=== PATIENT | female | born 1960 | race Caucasian/White ===

== ENCOUNTER 2017-09-16 09:21 | Emergency (ER) | payer OTHER ==
[~2017-09-16] VITALS: Ht 157.5 cm; Wt 62.6 kg
[~2017-09-16 09:21] MED LIST: AZIT250T6 PO; PRED50TA PO
[2017-09-16 09:31] VITALS: BP 143/63
[2017-09-16] MEDS ORDERED: TRIA80OI TP (10:03)
[2017-09-16] MEDS ORDERED: KETO15CR2 TP (10:04)
--- NOTE | 2017-09-16 10:19 | PHYS DOC ---
Past History Past Medical History: COPD Past Surgical History: No Surgical History Smoking: Cigarettes Alcohol Use: Occasionally Drug Use: None Adult General Chief Complaint Chief Complaint: SKIN RASH/ABSCESS [facility] HPI 57-year-old female presents with rash from just below her breast up into her neck. The rash is erythematous and scaly. She states that she has had this rash for about a month. She has tried hydrocortisone cream at one point the rash went away for about a week but then it came back worse. It is pruritic. She has no history of rashes in the past. No history of eczema. No history of yeast infections. She cannot think of any unusual or new exposures to chemicals or detergents. No rash on her lower extremities or back. She denies fever or chills. She has no other symptoms of illness. Review of Systems Review of Systems Constitutional: Denies fever or chills [] Eyes: Denies change in visual acuity, redness, or eye pain [] HENT: Denies nasal congestion or sore throat [] Respiratory: Denies cough or shortness of breath [] Cardiovascular: No additional information not addressed in HPI [] GI: Denies abdominal pain, nausea, vomiting, bloody stools or diarrhea [] : Denies dysuria or hematuria [] Musculoskeletal: Denies back pain or joint pain [] Integument: Rash on chest and neck [] Neurologic: Denies headache, focal weakness or sensory changes [] Endocrine: Denies polyuria or polydipsia [] All other systems were reviewed and found to be within normal limits, except as documented in this note. Allergies Allergies Allergies Coded Allergies Type Severity Reaction Last Updated Verified No Known Allergies Allergy Unknown 03/20/16 Yes Physical Exam Physical Exam Constitutional: Well developed, well nourished, no acute distress, non-toxic appearance. [] HENT: Normocephalic, atraumatic, bilateral external ears normal, oropharynx moist, no oral exudates, nose normal. [] Eyes: PERRLA, EOMI, conjunctiva normal, no discharge. [] Neck: Normal range of motion, no tenderness, supple, no stridor. [] Cardiovascular:Heart rate regular rhythm, no murmur [] Lungs & Thorax: Bilateral breath sounds clear to auscultation [] Abdomen: Bowel sounds normal, soft, no tenderness, no masses, no pulsatile masses. [] Skin: Erythematous macules with areas of confluence. Moderate scaling of the rash of the neck.[] Back: No tenderness, no CVA tenderness. [] Extremities: No tenderness, no cyanosis, no clubbing, ROM intact, no edema. [] Neurologic: Alert and oriented X 3, normal motor function, normal sensory function, no focal deficits noted. [] Psychologic: Affect normal, judgement normal, mood normal. [] Current Patient Data Vital Signs Vital Signs Date Time Temp Pulse Resp B/P (MAP) Pulse Ox O2 Delivery O2 Flow Rate FiO2 09/16/17 09:31 98.4 63 18 98 Room Air EKG EKG [] Radiology/Procedures Radiology/Procedures [] Course & Med Decision Making Course & Med Decision Making Pertinent Labs and Imaging studies reviewed. (See chart for details) The patient's rash has the appearance of atopic dermatitis and some areas as above the breast and neck. The area below her breasts has the look of a fungal infection. It is possible that she has both of these, I most suspect atopic dermatitis. I will give her a prescription for triamcinolone 0.5 cream twice a day. Will also provide her a prescription for ketoconazole cream in case this is a fungal infection. I provided directions for her to start with the steroid and the indications to watch for if it gets worse and switch medications. She has any questions or call us or follow up with her PCP. [] Alis Disclaimer Alis Disclaimer This electronic medical record was generated, in whole or in part, using a voice recognition dictation system. Departure Departure: Impression: Primary Impression: Atopic dermatitis Disposition: 01 HOME, SELF-CARE Condition: STABLE Patient Instructions: Eczema, Yeast Infection of the Skin, [id number] Scripts Ketoconazole (KETOCONAZOLE) 15 Gm Cream..g. 1 KASH TP BID, #60 GM 1 Refill Prov: LEATHA ERWIN DO 09/16/17 Triamcinolone Acetonide (TRIAMCINOLONE ACETONIDE) 80 Gm Oint...g. 1 KASH TP BID, #30 GM 1 Refill Prov: LEATHA ERWIN DO 09/16/17 LEATHA ERWIN DO September 16, 2017 10:19
== END 2017-09-16 10:15 | disposition home or self-care (01) ==
LOC: ER 09:21
DX: L20.9 Atopic dermatitis, unspecified (principal); J44.9 Chronic obstructive pulmonary disease, unspecified; F17.210 Nicotine dependence, cigarettes, uncomplicated
CPT/HCPCS: 99283

== ENCOUNTER → 2017-12-11 23:53 | Emergency (ER) | payer OTHER ==
[~2017-12-11] VITALS: Ht 157.5 cm; Wt 62.6 kg
[2017-12-11 23:53] VITALS: BP 143/63
[~2017-12-11 23:53] MED LIST changes: +KETO15CR2 TP; +MVI, ADULT NO.4 WITH VIT K 10 ML, FOLIC ACID SYRINGE for ER 1 MG, THIAMINE 100 MG in IV... IV ONE; +TRIA80OI TP
--- NOTE | 2017-12-12 00:03 | ED.ADGEN ---
Past History Past Medical History: Alcoholism, COPD Past Surgical History: No Surgical History Smoking: Cigarettes Alcohol Use: Occasionally Drug Use: None Adult General Chief Complaint Chief Complaint ".. I don't want to be fucking here... they made me come...".." I am leaving soon as I get a chance..." " Can't a person get drunk anymore..." HPI HPI Patient is a 57 year old female [employer] at [employer], who presents with hx of alcohol abuse. Pt. a Police Dept. referral to Paramedics to take her to [facility]. Pt. was found passed out on side of road by her home. Pt. reportedly unable to walk due to alcohol intoxication. Pt. however ambulatory without problems on arrival to ED. Pt. denies injury. Know to Police Dept. for frequent public intoxication. Usually pt is escorted or told to go inside of her home, however tonight referral to [place] for her intoxicated state. Pt. insistent she was not going to be admitted. Pt. finally agreed to receive IV and further evaluation. ( Note Pt. ran out the back door when she went to the bathroom. ) Review of Systems Review of Systems Pt,. states she was only drunk- no complaints other than being made to come to the hospital. Constitutional: Denies fever or chills [] Eyes: Denies change in visual acuity, redness, or eye pain [] HENT: Denies nasal congestion or sore throat [] Respiratory: Denies cough or shortness of breath [] Cardiovascular: No additional information not addressed in HPI [] GI: Denies abdominal pain, nausea, vomiting, bloody stools or diarrhea [] : Denies dysuria or hematuria [] Musculoskeletal: Denies back pain or joint pain [] Integument: Denies rash or skin lesions [] Neurologic: Denies headache, focal weakness or sensory changes [] Endocrine: Denies polyuria or polydipsia [] All other systems were reviewed and found to be within normal limits, except as documented in this note. Family History Family History Non-contributory Current Medications Current Medications Current Medications Medications (Trade) Dose Ordered Sig/Jacinto Start Time Stop Time Status Last Admin Dose Admin Multivitamins/ Minerals 10 ml/ Folic Acid 1 mg/ Thiamine HCl 100 mg/Sodium Chloride 1,011.1 ml @ 1,000 mls/ hr 1X ONCE 12/12/17 00:45 12/12/17 01:45 DC Allergies Allergies Allergies Coded Allergies Type Severity Reaction Last Updated Verified No Known Allergies Allergy Unknown 03/20/16 Yes Physical Exam Physical Exam Constitutional: no acute distress, mildly intoxicated in appearance. [] HENT: Normocephalic, atraumatic, bilateral external ears normal, oropharynx moist, no oral exudates, nose normal. [] Eyes: PERRLA, EOMI, conjunctiva mild injection, no discharge. [] Neck: Normal range of motion, no tenderness, supple, no stridor. [] Cardiovascular:Heart rate regular rhythm, no murmur [] Lungs & Thorax: Bilateral breath sounds equal at apex on auscultation [] Abdomen: Bowel sounds normal, soft, no tenderness, no masses, no pulsatile masses. [] Skin: Warm, dry, no erythema, no rash. [] Back: No tenderness, no CVA tenderness. [] Extremities: No tenderness, no cyanosis, no clubbing, ROM intact, no edema. [] Neurologic: Alert and oriented X 3, normal motor function, normal sensory function, no focal deficits noted. [] Slightly wide gait and discoordinated. Psychologic: Affect normal, judgement normal, mood normal. [] Current Patient Data Vital Signs Vital Signs Date Time Temp Pulse Resp B/P (MAP) Pulse Ox O2 Delivery O2 Flow Rate FiO2 12/11/17 23:53 98.4 84 18 98 EKG EKG [] Radiology/Procedures Radiology/Procedures [] Course & Med Decision Making Course & Med Decision Making Pertinent Labs and Imaging studies reviewed. (See chart for details) Note pt. reportedly ran out back door ([place]) when she went to the bathroom. [] Final Impression Final Impression 1. Alcohol Intoxication[] Dragon Disclaimer Dragon Disclaimer This electronic medical record was generated, in whole or in part, using a voice recognition dictation system. HAMZAH COSTA MD Dec 12, 2017 00:02
== END | disposition left against medical advice (07) ==
LOC: ER 23:53
DX: F10.229 Alcohol dependence with intoxication, unspecified (principal); J44.9 Chronic obstructive pulmonary disease, unspecified; F17.210 Nicotine dependence, cigarettes, uncomplicated; Y90.9 Presence of alcohol in blood, level not specified
CPT/HCPCS: 99283

== ENCOUNTER 2018-02-05 02:24 | Emergency (ER) | payer OTHER ==
[~2018-02-05] VITALS: Ht 154.9 cm; Wt 60.6 kg
[~2018-02-05 02:24] MED LIST changes: -MVI, ADULT NO.4 WITH VIT K 10 ML, FOLIC ACID SYRINGE for ER 1 MG, THIAMINE 100 MG in IV... IV ONE
--- NOTE | 2018-02-05 02:40 | ED.ADGEN ---
Past History Past Medical History: Alcoholism, COPD Past Surgical History: No Surgical History Smoking: Cigarettes Alcohol Use: Heavy Drug Use: None Adult General Chief Complaint Chief Complaint "...I was drinking.. I was drinking heavy.... I drink heavy every day... but usually drink.. at home...so this does not happen.... next thing .. I know..these guys ... picked me up and brought me here..." HPI HPI Patient is a 57 year old female who presents with hx of heavy alcohol use and police referral. Pt. reportedly initially found by paper delivery boy asleep by the road. PD responded and call ambulance. Pt. has no current complaints. Pt. estimate she drank at least a case amount of [facility] [place] [facility] Pt. last seen on 12/11/17 for similar presentation of alcohol abuse and intoxication. Review of Systems Review of Systems Constitutional: Denies fever or chills [] Eyes: Denies change in visual acuity, redness, or eye pain [] HENT: Denies nasal congestion or sore throat [] Respiratory: Denies cough or shortness of breath [] Cardiovascular: No additional information not addressed in HPI [] GI: Denies abdominal pain, nausea, vomiting, bloody stools or diarrhea [] : Denies dysuria or hematuria [] Musculoskeletal: Denies back pain or joint pain [] Integument: Denies rash or skin lesions [] Neurologic: Denies headache, focal weakness or sensory changes [] Endocrine: Denies polyuria or polydipsia [] All other systems were reviewed and found to be within normal limits, except as documented in this note. Family History Family History Non-contributory Current Medications Current Medications Current Medications Medications (Trade) Dose Ordered Sig/Jacinto Start Time Stop Time Status Last Admin Dose Admin Lactated Ringer's 1,000 ml @ 1,000 mls/hr 1X ONCE 02/05/18 03:00 02/05/18 03:37 DC 02/05/18 02:49 1,000 MLS/HR See nursing for home meds. Allergies Allergies Allergies Coded Allergies Type Severity Reaction Last Updated Verified No Known Allergies Allergy Unknown 03/20/16 Yes Physical Exam Physical Exam Constitutional: Pt. has no acute distress,intoxicated appearance. [] HENT: Normocephalic, atraumatic, bilateral external ears normal, oropharynx moist, no oral exudates, nose normal. []Edentulous Eyes: PERRLA, EOMI, conjunctiva injected, no discharge. [] Neck: Normal range of motion, no tenderness, supple, no stridor. [] Cardiovascular:Heart rate regular rhythm, no murmur , PMI to Lt. Lungs & Thorax: Bilateral breath sounds equal at apexes with scattered wheezes on auscultation [] Abdomen: Bowel sounds normal, soft, no tenderness, no masses, no pulsatile masses. [] Skin: Warm, dry, no erythema, no rash. [] Back: No tenderness, no CVA tenderness. [] Extremities: No tenderness, no cyanosis, no clubbing, ROM intact, no edema. [] Neurologic: Alert and oriented X 3,slurred speech, moves all ext .on request. , , DTR + patella and brachial. mild discoordinated, wide gait. Clinical Care Manager equal. Psychologic: Affect polite, , judgement normal, mood normal. [] Current Patient Data Vital Signs Vital Signs Date Time Temp Pulse Resp B/P (MAP) Pulse Ox O2 Delivery O2 Flow Rate FiO2 02/05/18 03:05 78 16 127/82 (97) 97 Room Air 02/05/18 02:32 97.8 EKG EKG [] Radiology/Procedures Radiology/Procedures [] Course & Med Decision Making Course & Med Decision Making Pertinent Labs and Imaging studies reviewed. (See chart for details). Patient encouraged to reduce her consumption of alcohol. Patient take a daily multivitamin. Patient consider alcohol treatment programs. Patient return if any concerns. Patient follow-up primary care. Pt. encourage to stop smoking and using alcohol to excess. Pt. ambulatory without problems and taking a cab home. [] Final Impression Final Impression 1. Alcohol intoxication[] 2. Tobacco Use 3. Hx of COPD 4. Hx. of Chronic Alcohol use to point of passing out and or falling asleep. Dragon Disclaimer Dragon Disclaimer This electronic medical record was generated, in whole or in part, using a voice recognition dictation system. HAMZAH COSTA MD Feb 05, 2018 02:40
[2018-02-05] MEDS ORDERED: IV RINGERS SOLUTION,LACTATED 1,000 ML IV ONE (03:00)
[2018-02-05 03:05] VITALS: BP 127/82
== END 2018-02-05 03:25 | disposition home or self-care (01) ==
LOC: ER 02:24
DX: F10.229 Alcohol dependence with intoxication, unspecified (principal); J44.9 Chronic obstructive pulmonary disease, unspecified; F17.210 Nicotine dependence, cigarettes, uncomplicated; Y90.9 Presence of alcohol in blood, level not specified
CPT/HCPCS: 99284; J7120

== ENCOUNTER 2018-03-02 23:58 | Emergency (ER) | payer OTHER ==
[~2018-03-02] VITALS: Ht 160 cm; Wt 61.2 kg
--- NOTE | 2018-03-03 00:13 | ED.ADGEN ---
Past History Past Medical History: Alcoholism, COPD Past Surgical History: No Surgical History Smoking: Cigarettes Alcohol Use: Heavy Drug Use: None Adult General Chief Complaint Chief Complaint ".. I drank too much...".. " I was watching world series..".. " You were here the last time I came in..." HPI HPI Patient is a 57 year old female who presents with above hx and complaints. [facility] Pt. found by bystander after she has consumed 2 Liters of vodka today. Pt. know to ED staff and paramedics for periodic alcohol abuse excesses. Pt. denies trauma. Denies Ill contacts or travel. Pt. currently unable to stand due to her intoxication and unstable gait. Review of Systems Review of Systems Pt. states she has no complaints Constitutional: Denies fever or chills [] Eyes: Denies change in visual acuity, redness, or eye pain [] HENT: Denies nasal congestion or sore throat [] Respiratory: Denies cough or shortness of breath [] Cardiovascular: No additional information not addressed in HPI [] GI: Denies abdominal pain, nausea, vomiting, bloody stools or diarrhea [] : Denies dysuria or hematuria [] Musculoskeletal: Denies back pain or joint pain [] Integument: Denies rash or skin lesions [] Neurologic: Denies headache, focal weakness or sensory changes [] Endocrine: Denies polyuria or polydipsia [] All other systems were reviewed and found to be within normal limits, except as documented in this note. Family History Family History Non-contributory Current Medications Current Medications Current Medications Medications (Trade) Dose Ordered Sig/Jacinto Start Time Stop Time Status Last Admin Dose Admin Folic Acid (FOLIC ACID SYRINGE for ER) 5 mg STK-MED ONCE 03/03/18 00:30 03/03/18 00:32 DC Multivitamins/ Minerals (Infuvite Adult) 10 ml STK-MED ONCE 03/03/18 00:30 03/03/18 00:32 DC Multivitamins/ Minerals 10 ml/ Folic Acid 1 mg/ Thiamine HCl 100 mg/Lactated Ringer's 1,011.2 ml @ 1,000 mls/ hr 1X ONCE 03/03/18 00:30 03/03/18 01:30 DC 03/03/18 00:36 1,000 MLS/HR Ondansetron HCl (Zofran) 8 mg 1X ONCE 03/03/18 06:15 03/03/18 06:15 DC Thiamine HCl (Thiamine Vial) 200 mg STK-MED ONCE 03/03/18 00:29 03/03/18 00:30 DC Allergies Allergies Allergies Coded Allergies Type Severity Reaction Last Updated Verified No Known Allergies Allergy Unknown 03/20/16 Yes Physical Exam Physical Exam Constitutional: , no acute distress, intoxicated in appearance. [] HENT: Normocephalic, atraumatic, bilateral external ears normal, oropharynx moist, no oral exudates, nose normal. []Edentulous Eyes: PERRLA, EOMI, conjunctiva injected,, no discharge. [] Neck: Normal range of motion, no tenderness, supple, no stridor. [] Cardiovascular:Heart rate regular rhythm, no murmur [] Lungs & Thorax: Bilateral breath sounds equal at apex with scattered wheezes on auscultation [] Abdomen: Bowel sounds normal, soft, no tenderness, no masses, no pulsatile masses. Midline scar Skin: Warm, dry, no erythema, no rash. [] Back: No tenderness, no CVA tenderness. [] Extremities: No tenderness, no cyanosis, no clubbing, ROM intact, no edema. [] Neurologic: Alert and oriented X 3, moves all extremities on request, decreased plantar sensory function, no focal deficits noted. [Discoordinated Psychologic: Affect sedated, judgement appears lack insight to her alcohol abuse , mood normal. [] Current Patient Data Vital Signs Vital Signs Date Time Temp Pulse Resp B/P (MAP) Pulse Ox O2 Delivery O2 Flow Rate FiO2 03/03/18 05:45 82 18 120/72 (88) 99 Room Air 03/03/18 00:03 98.5 Lab Results Laboratory Tests Test 03/03/18 00:10 03/03/18 00:16 White Blood Count 4.4 x10^3/uL (4.0-11.0) Red Blood Count 4.02 x10^6/uL (3.50-5.40) Hemoglobin 14.4 g/dL (12.0-15.5) Hematocrit 40.6 % (36.0-47.0) Mean Corpuscular Volume 101 fL (79-100) H Mean Corpuscular Hemoglobin 36 pg (25-35) H Mean Corpuscular Hemoglobin Concent 35 g/dL (31-37) Red Cell Distribution Width 13.4 % (11.5-14.5) Platelet Count 234 x10^3/uL (140-400) Neutrophils (%) (Auto) 43 % (31-73) Lymphocytes (%) (Auto) 40 % (24-48) Monocytes (%) (Auto) 12 % (0-9) H Eosinophils (%) (Auto) 4 % (0-3) H Basophils (%) (Auto) 1 % (0-3) Neutrophils # (Auto) 1.9 x10^3uL (1.8-7.7) Lymphocytes # (Auto) 1.8 x10^3/uL (1.0-4.8) Monocytes # (Auto) 0.5 x10^3/uL (0.0-1.1) Eosinophils # (Auto) 0.2 x10^3/uL (0.0-0.7) Basophils # (Auto) 0.0 x10^3/uL (0.0-0.2) Prothrombin Time 9.6 SEC (9.4-11.4) Prothrombin Time INR 1.0 (0.9-1.1) PTT 25 SEC (23-33) Sodium Level 141 mmol/L (136-145) Potassium Level 3.7 mmol/L (3.5-5.1) Chloride Level 106 mmol/L (98-107) Carbon Dioxide Level 30 mmol/L (21-32) Anion Gap 5 (6-14) L Blood Urea Nitrogen 10 mg/dL (7-20) Creatinine 0.5 mg/dL (0.6-1.0) L Estimated GFR (Cockcroft-Gault) 128.1 Glucose Level 92 mg/dL (70-99) Calcium Level 8.0 mg/dL (8.5-10.1) L Magnesium Level 2.4 mg/dL (1.8-2.4) Total Bilirubin 0.2 mg/dL (0.2-1.0) Direct Bilirubin 0.1 mg/dL (0.0-0.2) Aspartate Amino Transferase (AST) 34 U/L (15-37) Alanine Aminotransferase (ALT) 120 U/L (14-59) H Alkaline Phosphatase 136 U/L (46-116) H Total Protein 6.8 g/dL (6.4-8.2) Albumin 3.5 g/dL (3.4-5.0) Ethyl Alcohol Level 423 mg/dL (0-10) *H Urine Collection Type U cath Urine Color Straw Urine Clarity Clear Urine pH 5.0 Urine Specific [place] <=1.005 Urine Protein Neg (NEG-TRACE) Urine Glucose (UA) Neg mg/dL (NEG) Urine Ketones (Stick) Neg mg/dL (NEG) Urine Blood Neg (NEG) Urine Nitrite Neg (NEG) Urine Bilirubin Neg (NEG) Urine Urobilinogen Dipstick 0.2 mg/dL (0.2 mg/dL) Urine Leukocyte Esterase Neg (NEG) Urine RBC Rare /HPF (0-2) Urine WBC Rare /HPF (0-4) Urine Bacteria 0 /HPF (0-FEW) Urine Opiates Screen Neg (NEG) Urine Methadone Screen Neg (NEG) Urine Barbiturates Neg (NEG) Urine Phencyclidine Screen Neg (NEG) Urine Amphetamine/Methamphetamine Neg (NEG) Urine Benzodiazepines Screen Neg (NEG) Urine Cocaine Screen Neg (NEG) Urine Cannabinoids Screen Neg (NEG) Urine Ethyl Alcohol Pos (NEG) EKG EKG My interpretation EKG shows a sinus rhythm at 78 bpm. No acute morphology[] Radiology/Procedures Radiology/Procedures [] Course & Med Decision Making Course & Med Decision Making Pertinent Labs and Imaging studies reviewed. (See chart for details) Encourage pt. to reduce her alcohol intake. Pt. encourage to consider alcohol abuse program. Take a daily MV with Milagros elmore. Pt. to follow up with primary. Return if any concerns. [] Final Impression Final Impression 1. Alcohol Abuse.-423 2. Macrocytic 3. Elevated AST/ ALT- 120/136 Dragon Disclaimer Dragon Disclaimer This electronic medical record was generated, in whole or in part, using a voice recognition dictation system. HAMZAH COSTA MD Mar 03, 2018 00:13
[2018-03-03] MEDS ORDERED: MVI, ADULT NO.4 WITH VIT K 10 ML, FOLIC ACID SYRINGE for ER 1 MG, THIAMINE INJ 100 MG i... IV ONE ×8 (00:15→00:30)
[2018-03-03 00:27] LABS: BASO % 1 % (0-3); EOS # 0.2 x10^3/uL (0.0-0.7); EOS % 4 % (0-3); HEMATOCRIT 40.6 % (36.0-47.0); HEMOGLOBIN 14.4 g/dL (12.0-15.5); LYMPH # 1.8 x10^3/uL (1.0-4.8); LYMPH % 40 % (24-48); MEAN CORPUSCULAR HEMOGLOBIN 36 pg (25-35); MEAN CORPUSCULAR HGB CONC 35 g/dL (31-37); MEAN CORPUSCULAR VOLUME 101 fL (79-100); MONO # 0.5 x10^3/uL (0.0-1.1); MONO % 12 % (0-9); NEUT # 1.9 x10^3uL (1.8-7.7); NEUT % 43 % (31-73); PLATELET COUNT 234 x10^3/uL (140-400); RED BLOOD COUNT 4.02 x10^6/uL (3.50-5.40); RED CELL DISTRIBUTION WIDTH 13.4 % (11.5-14.5); WHITE BLOOD COUNT 4.4 x10^3/uL (4.0-11.0)
[2018-03-03] MEDS ORDERED: THIAMINE 200 MG/2 ML VIAL. IV ONE (00:29)
[2018-03-03] MEDS ORDERED: FOLIC ACID 5 MG/ML SYRINGE for ER IV ONE (00:30)
[2018-03-03] MEDS ORDERED: MVI, ADULT NO.4 WITH VIT K 10 ML VIAL IV ONE (00:30)
[2018-03-03 00:39] LABS: ALBUMIN 3.5 g/dL (3.4-5.0); CREATININE 0.5 mg/dL (0.6-1.0); DIRECT BILIRUBIN 0.1 mg/dL (0.0-0.2); GFR 128.1; MAGNESIUM 2.4 mg/dL (1.8-2.4); POTASSIUM 3.7 mmol/L (3.5-5.1); TOTAL BILIRUBIN 0.2 mg/dL (0.2-1.0); TOTAL PROTEIN 6.8 g/dL (6.4-8.2)
[2018-03-03 00:53] LABS: BILIRUBIN,URINE NEG (NEG); CLARITY,URINE CLEAR; COLOR,URINE STRAW; GLUCOSE,URINE NEG (NEG); NITRITE,URINE NEG (NEG); RBC,URINE RARE /HPF (0-2); UROBILINOGEN,URINE 0.2 mg/dL (0.2 mg/dL); WBC,URINE RARE /HPF (0-4)
[2018-03-03 00:54] LABS: BACTERIA,URINE 0 /HPF (0-FEW)
[2018-03-03 00:57] LABS: AMPHETAMINE/METHAMPHETAMINE NEG (NEG); BARBITURATES NEG (NEG); BENZODIAZEPINES NEG (NEG); CANNABINOIDS NEG (NEG); COCAINE NEG (NEG); METHADONE NEG (NEG); OPIATES NEG (NEG); PHENCYCLIDINE NEG (NEG)
--- NOTE | 2018-03-03 01:24 | EKG ---
[address] [address] Test Date: 2018-03-03 Test Time: 00:21:04 Pat Name: REYES ANDRE Department: Room: Gender: F Dice Table Person: : 1960 Requested By: HAMZAH COSTA Order Number: [id number] Reading MD: Rylan Rinaldi MD Measurements Intervals Herman Rate: 78 P: 40 AR: 190 QRS: 46 QRSD: 76 T: 41 QT: 378 QTc: 434 Interpretive Statements SINUS RHYTHM Electronically Signed On 03-03-2018 11:50:39 CDT by Rylan Rinaldi MD
[2018-03-03 05:45] VITALS: BP 120/72
[2018-03-03] MEDS ORDERED: ONDANSETRON PF 4 MG/2 ML VIAL. IV ONE (06:15)
== END 2018-03-03 05:58 | disposition home or self-care (01) ==
LOC: ER 23:58
DX: F10.20 Alcohol dependence, uncomplicated (principal); D53.9 Nutritional anemia, unspecified; R74.8 Abnormal levels of other serum enzymes; J44.9 Chronic obstructive pulmonary disease, unspecified; F17.210 Nicotine dependence, cigarettes, uncomplicated; Y90.8 Blood alcohol level of 240 mg/100 ml or more
CPT/HCPCS: 36415; 80048; 80076; 80307; 81001; 83735; 85025; 85610; 85730; 93005; 96365; 99285; G0480; J7120; G0479

== ENCOUNTER 2019-02-16 11:49 | Emergency (ER) | payer SELFPAY ==
[~2019-02-16] VITALS: Ht 154.9 cm; Wt 55.3 kg
[2019-02-16] MEDS ORDERED: KETOROLAC 15 MG/ML VIAL. IM ONE (13:00)
[2019-02-16] MEDS ORDERED: ORPHENADRINE CITRATE 60 MG/2 ML VIAL. IM ONE (13:00)
[2019-02-16] MEDS ORDERED: ORPH-16 PO (13:15)
--- NOTE | 2019-02-16 13:15 | PHYS DOC ---
Past History Past Medical History: Alcoholism Past Surgical History: No Surgical History Smoking: Cigarettes Alcohol Use: Heavy Additional Alcohol Information: " I drink about a 6 pack about 3 or 4 times a week" Drug Use: None Adult General Chief Complaint Chief Complaint: LOWER EXT PAIN HPI HPI 58-year-old female presents with report of left-sided thigh pain after falling down the stairs 3 days ago. Patient reports she had slipped at that time due to the wooden stairs. Reports wasn't able to catch herself and fell backwards. Patient reports was able to ambulate afterwards however pain has significant only increased. Denies use of blood thinners. Denies head trauma. Denies neck pain. Denies loss of consciousness. Denies numbness or tingling. Review of Systems Review of Systems Constitutional: Denies fever or chills Eyes: Denies redness or eye pain HENT: Denies nasal congestion or sore throat Respiratory: Denies cough or shortness of breath Cardiovascular: Denies chest pain or palpitations GI: Denies abdominal pain, nausea, or vomiting : Denies dysuria or hematuria Musculoskeletal: Reports left thigh pain Integument: Reports bruising and swelling Neurologic: Denies headache, focal weakness or sensory changes Complete systems were reviewed and found to be within normal limits, except as documented in this note. Current Medications Current Medications Current Medications Medications (Trade) Dose Ordered Sig/Jacinto Start Time Stop Time Status Last Admin Dose Admin Ketorolac Tromethamine (Toradol 15mg Vial) 15 mg 1X ONCE 02/16/19 13:00 02/16/19 13:01 DC 02/16/19 12:59 15 MG Orphenadrine Citrate (Norflex) 60 mg 1X ONCE 02/16/19 13:00 02/16/19 13:01 DC 02/16/19 12:59 60 MG Allergies Allergies Allergies Coded Allergies Type Severity Reaction Last Updated Verified No Known Allergies Allergy Unknown 03/20/16 Yes Physical Exam Physical Exam Constitutional: Well developed, well nourished, no acute distress, non-toxic appearance HENT: Normocephalic, atraumatic, oropharynx moist Eyes: PERRL, EOMI, conjunctiva normal, no discharge Neck: Normal range of motion, no midline tenderness, supple Cardiovascular: Heart rate normal, regular rhythm Lungs & Thorax: Bilateral breath sounds clear to auscultation, no wheezing Abdomen: Soft, no tenderness; pelvis stable and nontender Skin: Warm, dry, no erythema, left posterior thigh ecchymosis noted Back: No tenderness, no CVA tenderness Extremities: Left mid femur tenderness on palpation, ROM intact, no edema, no deformity Neurologic: Alert and oriented X 3, no focal deficits noted Psychologic: Affect normal, judgement normal Current Patient Data Vital Signs Vital Signs Date Time Temp Pulse Resp B/P (MAP) Pulse Ox O2 Delivery O2 Flow Rate FiO2 02/16/19 11:55 98.1 83 16 97 Room Air EKG EKG [] Radiology/Procedures Radiology/Procedures PROCEDURE: HIP LEFT 2V WITH PELVIS Examination: 2 views of the left hip with frontal view the pelvis and 2 views of the left femur HISTORY: History of pain status post fall COMPARISON: None available. FINDINGS: The femoral head is within the acetabulum. Moderate joint space loss identified in the left hip joint likely degenerative changes. There is no acute fracture or dislocation identified. Impression: No acute osseous findings. Electronically signed by: Michael Jane MD (02/16/2019 1:17 PM) [id number] PROCEDURE: LEFT FEMUR XRAY Examination: 2 views of the left hip with frontal view the pelvis and 2 views of the left femur HISTORY: History of pain status post fall COMPARISON: None available. FINDINGS: The femoral head is within the acetabulum. Moderate joint space loss identified in the left hip joint likely degenerative changes. There is no acute fracture or dislocation identified. Impression: No acute osseous findings. Electronically signed by: Michael Jane MD (02/16/2019 1:17 PM) [id number] Course & Med Decision Making Course & Med Decision Making Pertinent Imaging studies reviewed. (See chart for details) Patient presents with report of mechanical slip and fall 2 days ago now with left thigh pain. No deformity appreciated. Symptomatic treatment provided. X-ray obtained without acute process. Patient stable for discharge with outpatient follow-up with PCP/orthopedics. Orthopedic referral provided. Discussed findings and plan with patient, who acknowledges understanding and agreement. Dragon Disclaimer Dragon Disclaimer This electronic medical record was generated, in whole or in part, using a voice recognition dictation system. Departure Departure: Impression: Primary Impression: Contusion of leg, left Additional Impression: Strain of hip Disposition: 01 HOME, SELF-CARE Condition: STABLE Referrals: PCP,NO (PCP) Patient Instructions: Contusion, [id number], Fall Prevention and Home Safety, [id number], Muscle Strain, [id number] Additional Instructions: ICE area of discomfort 20 min on then leave off for 20 min. Use over the counter Tylenol and Ibuprofen for pain or discomfort. Scripts Orphenadrine Citrate (ORPHENADRINE CITRATE) 100 Mg Tablet.er 1 TAB PO BID PRN for MUSCLE PAIN, #14 TAB 0 Refills Prov: BALDEV FRANCO DO 02/16/19 Problem Qualifiers Primary Impression: Contusion of leg, left Encounter type: initial encounter Qualified Codes: S80.12XA - Contusion of left lower leg, initial encounter Additional Impression: Strain of hip Encounter type: initial encounter Laterality: left Qualified Codes: S76.012A - Strain of muscle, fascia and tendon of left hip, initial encounter BALDEV FRANCO DO Feb 16, 2019 13:15
--- NOTE | 2019-02-16 13:20 | RAD ---
Examination: 2 views of the left hip with frontal view the pelvis and 2 views of the left femur HISTORY: History of pain status post fall COMPARISON: None available. FINDINGS: The femoral head is within the acetabulum. Moderate joint space loss identified in the left hip joint likely degenerative changes. There is no acute fracture or dislocation identified. Impression: No acute osseous findings. Electronically signed by: Michael Jane MD (02/16/2019 1:17 PM) [id number]
[2019-02-16 13:24] VITALS: BP 141/68
== END 2019-02-16 13:20 | disposition home or self-care (01) ==
LOC: ER 11:49
DX: S76.012A Strain of muscle, fascia and tendon of left hip, initial encounter (principal); S80.12XA Contusion of left lower leg, initial encounter; F17.210 Nicotine dependence, cigarettes, uncomplicated; F10.20 Alcohol dependence, uncomplicated; Y90.9 Presence of alcohol in blood, level not specified; W10.8XXA Fall (on) (from) other stairs and steps, initial encounter; Y93.89 Activity, other specified; Y92.89 Other specified places as the place of occurrence of the external cause; Y99.8 Other external cause status
CPT/HCPCS: 73502; 73552; 96372; 99284; J1885; J2360

== ENCOUNTER 2020-05-07 10:45 | Emergency (ER) | payer OTHER ==
[~2020-05-07] VITALS: Ht 157.5 cm; Wt 63.8 kg
[~2020-05-07 10:45] MED LIST changes: +ORPH-16 PO
--- NOTE | 2020-05-07 11:16 | PHYS DOC ---
Past History Past Medical History: Alcoholism Past Surgical History: No Surgical History Smoking: Cigarettes Alcohol Use: Heavy Drug Use: None General Adult EDM: Chief Complaint: MULTIPLE COMPLAINTS HPI: HPI: 60-year-old female past medical history of COPD and tobacco dependence with former methamphetamine and cocaine abuse (quit in 2016) presents to the ed with s/o tender/painful rash over abdomen that started 3 days ago. Patient cannot recall any trauma or burn to her skin. 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 Denies any IVDU "I'll pee for ya if you need me to." Also complains of spontaneous left hand swelling-cannot recall any trauma. No prior history of allergic reactions, recent procedures/surgeries, IV placement in left upper extremity. Is not prescribed any daily medications, has no routine PMD-not on any LIOR inhibitor's. Is right hand dominant. Never had either of these sxs before. Tetanus UTD in past ten years. States her hand swelling worsens when she goes out in the cold and does not wear any gloves-states her hand turns white. Review of Systems: Review of Systems: Constitutional: Denies fever or chills Eyes: Denies change in visual acuity HENT: Denies nasal congestion or sore throat Respiratory: Denies cough or shortness of breath Cardiovascular: Denies chest pain or edema GI: Denies abdominal pain, nausea, vomiting, bloody stools or diarrhea : Denies dysuria or hematuria Musculoskeletal: Denies back pain or decreased range of motion Integument: Denies spreading red rash or cyanosis Neurologic: Denies headache, focal weakness or sensory changes Endocrine: Denies polyuria or polydipsia Lymphatic: Denies swollen glands Psychiatric: Denies depression or anxiety Allergies: Allergies: Allergies Coded Allergies Type Severity Reaction Last Updated Verified No Known Allergies Allergy Unknown 03/20/16 Yes Physical Exam: PE: Constitutional: Well developed, well nourished, no acute distress, non-toxic appearance. HENT: Normocephalic, atraumatic, normal mucous membranes with no edema, swelling, rash, Petechiae or ulcers Eyes: EOMI, conjunctiva normal, no discharge. Neck: Normal range of motion, supple, Cardiovascular: S1/2 present, regular rhythm Lungs & Thorax: Speaking in full sentences, bilateral equal chest rise, no tachypnea or increased work of breathing Abdomen: soft, no tenderness, [id number] of erythema (no increased warmth/induration or fluctuance) with middle area of dermis exposed-skin is flat, negative nikolsky sign Skin: Warm, dry, no erythema, no rash. [] Back: No tenderness, no CVA tenderness. [] Extremities: No tenderness, no cyanosis, bilateral equal brachial and radial pulses, cap refill less than 2 seconds in both hands, left hand uniformly swollen with no erythema, normal range of motion of left hand-no associated rash, normal interdigital web spaces, no IV track reynoso Neurologic: Alert and oriented X 3, normal motor function, normal sensory function, no focal deficits noted. [] Psychologic: Affect normal, judgement normal, mood normal. [] EKG: EKG: [] Radiology/Procedures: Radiology/Procedures: IMAGING REPORT Signed PATIENT: REYES ANDRE ACCOUNT: [id number] : 1960 LOCATION: ER AGE: 60 SEX: F EXAM STATUS: REG ER ORD. PHYSICIAN: HORACE CAMPBELL DO REASON: swelling PROCEDURE: HAND LEFT 2V EXAM: Left hand, 2 views. HISTORY: Swelling. COMPARISON: None. FINDINGS: 2 views of the left hand are obtained. There is no fracture, dislocation or subluxation. There is no suspicious radiodense foreign body. IMPRESSION: No acute osseous finding. Electronically signed by: Sherlyn Garrison MD (05/07/2020 11:30 AM) [facility] DICTATED AND SIGNED BY: SHERLYN GARRISON MD DATE: 05/07/20 1130 CC: PCP,NO; HORACE CAMPBELL DO ~MTH0 0 Heart Score: Risk Factors: Risk Factors: DM, Current or recent (<one month) smoker, HTN, HLP, family history of CAD, obesity. Risk Scores: Score 0 - 3: 2.5% MACE over next 6 weeks - Discharge Home Score 4 - 6: 20.3% MACE over next 6 weeks - Admit for Clinical Observation Score 7 - 10: 72.7% MACE over next 6 weeks - Early Invasive Strategies Course & Med Decision Making: Course & Med Decision Making Pertinent Labs and Imaging studies reviewed. (See chart for details) Concern for localized left hand swelling and rash to her abdomen that appears to be a contact dermatitis. Suspect localized angioedema > trauma, beurgers disease. Raynauds possible. Will discharge home with medrol dose pack. Strict ED return precautions were given for neurologic deficits, severe pain, worsening rash/redness, difficulties breathing or head or neck swelling. Encouraged urgent outpatient follow-up with PMD in 1-3 days for reevaluation. Life-threatening processes were considered but are low suspicion at this time, given history, physical exam and ED workup. Pt was educated on all prescription medications and adverse effects. All patient's questions were answered and pt was stable at time of discharge. Life/limb-threatening differential includes but is not limited to, trauma (fracture, dislocation, laceration, compartment syndrome, tendon or ligament injury), neurovascular injury or deficit, infection (osteomyelitis, abscess, cellulitis, septic arthritis, necrotizing fasciitis), deep vein thrombosis or arterial thrombosis, renal/cardiac/liver disease, medication adverse effect, smgioedema, buergers disease, raynauds, lymphedema/anasarca, vascular insufficiency or malignancy, I spoken with the patient and her caregivers. I explained the patient's condition, diagnoses and treatment plan based on the information available to me at this time. I have answered the patient and her caregiver's questions and addressed any concerns. The patient and her caregivers have a good understanding of patient's diagnosis, condition and treatment plan as can be e xpected at this point. Vital signs have been stable. Patient's condition is stable and appropriate for discharge from the emergency department. Patient will pursue further outpatient evaluation with primary care physician or other designated or consulting physician as outlined in the discharge instructions. The patient and/or caregivers are agreeable to this plan of care and follow-up instructions have been explained in detail. The patient and/or caregivers have received these instructions in written form and have expressed an understanding of the discharge instructions. The patient and/or caregivers are aware that any significant change of condition or worsening of symptoms should prompt immediate return to this or the closest emergency department or call to 911. Alis Disclaimer: Alis Disclaimer: This electronic medical record was generated, in whole or in part, using a voice recognition dictation system. Departure Departure: Impression: Primary Impression: Swelling of left hand Additional Impression: Abdominal wall abrasion Disposition: 01 DC HOME SELF CARE/HOMELESS Condition: STABLE Referrals: PCP,NO (PCP) FOLLOW UP WITH FAMILY MEDICINE: [facility], [facility] [address] [address] [facility] [address] [place] [address] Jacquie, Patient Instructions: Contact Dermatitis, Peripheral Edema Additional Instructions: EMERGENCY DEPARTMENT GENERAL DISCHARGE INSTRUCTIONS Thank you for coming to [facility] (ED) today and trusting us with you care. We trust that you had a positivie experience in our Emergency Department. If you wish to speak to the department management, you may call the director at [phone]. YOUR FOLLOW UP INSTRUCTIONS ARE FOLLOWS: 1. Do you have a private Doctor? If you do not have a private doctor, please ask for a resource list of physicians or clinics that may be able to assist you with follow up care. 2. The Emergency Physician has interpreted your x-rays. The X-Ray specialist will also review them. If there is a change in the findings, you will be notified in 48 hours when at all possible. 3. A lab test or culture has been done, your results will be reviewed and you will be notified if you need a change in treatment. ADDITIONAL INSTRUCTIONS AND INFORMATION: 1. Your care today has been supervised by a physician who is specially trained in emergency care. Many problems require more than one evaluation for a complete diagnosis and treatment. We recommend that you schedule your follow up appointment as recommended to ensure complete treatment of you illness or injury. If you are unable to obtain follow up care and continue to have a problem, or if your condition worsens, we recommend that you return to the ED. 2. We are not able to safely determine your condition over the phone nor are we able to give sound medical advice over the phone. For these safety reasons, if you call for medical advice we will ask you to come to the ED for further evaluation. 3. If you have any questions regarding these discharge instructions please call the ED at [phone]. SAFETY INFORMATION: In the interest of safety, wellness, and injury prevention; we encourage you to wear your sealbelt, if you smoke; quite smoking, and we encourage family to use a protective helmet for bicycling and other sporting events that present an increased risk for head injury. IF YOUR SYMPTOMS WORSEN OR NEW SYMPTOMS DEVELOP, OR YOU HAVE CONCERNS ABOUT YOUR CONDITION; OR IF YOUR CONDITION WORSENS WHILE YOU ARE WAITING FOR YOUR FOLLOW UP APPOINTMENT; EITHER CONTACT YOUR PRIMARY CARE DOCTOR, THE PHYSICIAN WHOSE NAME AND NUMBER YOU WERE GIVEN, OR RETURN TO THE ED IMMEDIATELY. Scripts Methylprednisolone (METHYLPREDNISOLONE) 4 Mg Tab.ds.pk 4 MG PO as directed for wheezing, #21 TAB Take 6 tabs x1 day, then 5 tabs x1 day, then 4 tabs x1 day, then 3 tabs x1 day, then 2 tabs x1 day, then 1 tabs x1 day Prov: HORACE CAMPBELL DO 05/07/20 HORACE CAMPBELL DO May 07, 2020 11:16
[2020-05-07] MEDS ORDERED: METH4TAB6 PO (11:30)
--- NOTE | 2020-05-07 11:33 | RAD ---
EXAM: Left hand, 2 views. HISTORY: Swelling. COMPARISON: None. FINDINGS: 2 views of the left hand are obtained. There is no fracture, dislocation or subluxation. Th ere is no suspicious radiodense foreign body. IMPRESSION: No acute osseous finding. Electronically signed by: Sherlyn Valentin MD (05/07/2020 11:30 AM) [facility]
[2020-05-07 12:09] VITALS: BP 149/98
== END 2020-05-07 12:09 | disposition home or self-care (01) ==
LOC: ER 10:45
DX: S30.811A Abrasion of abdominal wall, initial encounter (principal); R22.32 Localized swelling, mass and lump, left upper limb; F17.210 Nicotine dependence, cigarettes, uncomplicated; F10.20 Alcohol dependence, uncomplicated; Y90.9 Presence of alcohol in blood, level not specified; X58.XXXA Exposure to other specified factors, initial encounter; Y93.89 Activity, other specified; Y92.89 Other specified places as the place of occurrence of the external cause; Y99.8 Other external cause status
CPT/HCPCS: 73120; 99283